=== PATIENT | female | born 1990 | race Caucasian/White ===

== ENCOUNTER → 2019-12-26 | Outpatient (CLI) | payer OTHER ==
[2019-12-26 14:04] LABS: BASO % 0.2 % (0.0-1.0); EOS % 0.7 % (0.0-3.0); HEMOGLOBIN 12.5 g/dl (12.0-15.5); LYMPH # 1.4 10^3/uL (1.5-5.0); MEAN CORPUSCULAR HEMOGLOBIN 29.1 pg (27.0-33.0); MEAN CORPUSCULAR HGB CONC 32.9 g/dl (32.0-36.5); MEAN CORPUSCULAR VOLUME 88.4 fl (80.0-96.0); MONO # 0.2 10^3/uL (0.0-0.8); MONO % 5.4 % (0.0-5.0); NEUTROPHILS # 2.8 10^3/uL (1.5-8.5); NEUTROPHILS % 61.5 % (36.0-66.0); PLATELET COUNT, AUTOMATED 164 10^3/uL (150-450); WHITE BLOOD COUNT 4.5 10^3/uL (4.0-10.0)
[2019-12-26 15:09] LABS: HEPATITIS C VIRUS ABY INDEX 0.3 INDEX (<0.8); HIV 1&2 SCREEN CENTAUR NEGATIVE (NEGATIVE)
[2019-12-26 15:12] LABS: CHLAMYDIA DNA AMPLIFICATION NEGATIVE (NEGATIVE); GC DNA AMPLIFICATION NEGATIVE (NEGATIVE)
== END ==
LOC: M PLALAB 10:03
PROVIDERS: ATTEND Advanced Practice Midwife
DX: Z34.81 Encounter for supervision of other normal pregnancy, first trimester (principal); Z36.89 Encounter for other specified antenatal screening

== ENCOUNTER → 2020-01-22 | Outpatient (REF) | payer OTHER | LOC: M SFHCWAGY 13:22 | PROVIDERS: ATTEND Advanced Practice Midwife | DX: Z34.82 Encounter for supervision of other normal pregnancy, second trimester (principal) ==

== ENCOUNTER → 2020-01-22 | Outpatient (CLI) | payer OTHER ==
--- NOTE | 2020-01-31 11:26 | REP ---
OBSTETRIC SONOGRAPHY HISTORY: Supervision of for anatomy. FINDINGS: Scanning through the gravid uterus demonstrates a viable single intrauterine gestation in a cephalic lie. motion was observed and heart rate was recorded at 158 beats per minute. A posterior grade 1 placenta is seen without evidence of placenta previa or abruption. Amniotic fluid is subjectively normal. Closed cervical length is viewed transabdominally and measured at 3.1 cm. No extrauterine abnormality is observed. No anomaly is seen. The following anatomic structures are identified and felt to be unremarkable: cranium and intracranial anatomy, nuchal fold, face and profile, nose and lips, four chamber heart with left and right ventricular outflow tract views, diaphragm, left-sided stomach, kidneys and urinary bladder, spine, upper and lower extremities, three-vessel cord. BIOMETRY CHART: BPD 4.0 cm 18 weeks 0 days Head circumference 14.7 cm 17 weeks 6 days Abdominal circumference 11.9 cm 17 weeks 4 days Femur length 2.5 cm 17 weeks 3 days Humeral length 2.4 cm 17 weeks 3 days AC/HC ratio 1.23 Normal Cephalic index 0.75 Normal Estimated weight 201 grams, 0 pounds 7 ounces, less than 3rd percentile for 18 weeks 3 days. IMPRESSION: Viable single intrauterine gestation at 17 weeks 5 days by todays composite sonographic criteria. Estimated date of delivery (SHEY) by todays sonography 06/26/2020. MTDD
== END ==
LOC: EDUNIT# 08:00 → M WHC 08:09
PROVIDERS: ATTEND Advanced Practice Midwife
DX: Z34.82 Encounter for supervision of other normal pregnancy, second trimester (principal); Z3A.17 17 weeks gestation of pregnancy

== ENCOUNTER → 2020-03-07 | Outpatient (CLI) | payer OTHER ==
--- NOTE | 2020-03-07 13:39 | REP ---
INDICATION: GROWTH/ANATOMY SHOWED <3% GROWTH. COMPARISON: Comparison study 01/22/2020.. TECHNIQUE: Transabdominal obstetric sonography. FINDINGS: Scanning through the gravid uterus demonstrates a viable single intrauterine gestation in breech lie. motion is observed and heart rate is recorded at 155 beats per minute. A posterior placenta is seen, grade 1, without evidence of placenta previa. Amniotic fluid is subjectively normal. Closed cervical length is measured at 4.1 cm transabdominally. No extrauterine abnormality is observed. . Biometry chart: BPD 5.7 cm, 23 weeks 4 days Head circumference 22.0 cm, 24 weeks 0 days Abdominal circumference 19.9 cm, 24 weeks 4 days Femur length 4.1 cm, 23 weeks 1 day Humeral length 3.8 cm, 23 weeks 1 day HC AC ratio normal 1.10 Cephalic index normal 0.71 Estimated weight 642 g, 1 lb 6 oz, 10th percentile for 24 weeks 6 days IMPRESSION: Viable single intrauterine gestation at 23 weeks 5 days by today's composite sonographic criteria. SHEY by today's sonography June 29, 2020. No complication identified. Expected gestational age estimate based on prior sonography is 24 weeks 6 days. SHEY by prior sonography 21 June 2020. <Electronically signed by Hernandez Magallon > 03/07/20 [id number]
== END ==
LOC: M WHC 08:58
PROVIDERS: ATTEND Advanced Practice Midwife
DX: O99.342 Other mental disorders complicating pregnancy, second trimester (principal); Z3A.23 23 weeks gestation of pregnancy

== ENCOUNTER → 2020-03-20 | Outpatient (REF) | payer OTHER ==
[2020-03-20 11:48] LABS: HEMATOCRIT 34.5 % (36.0-47.0); HEMOGLOBIN 11.3 g/dl (12.0-15.5); MEAN CORPUSCULAR HEMOGLOBIN 30.1 pg (27.0-33.0); MEAN CORPUSCULAR HGB CONC 32.8 g/dl (32.0-36.5); PLATELET COUNT, AUTOMATED 171 10^3/uL (150-450); RED BLOOD COUNT 3.75 10^6/uL (4.00-5.40); WHITE BLOOD COUNT 5.7 10^3/uL (4.0-10.0)
== END ==
LOC: M PLALAB 08:35
PROVIDERS: ATTEND Advanced Practice Midwife
DX: O99.342 Other mental disorders complicating pregnancy, second trimester (principal); Z3A.00 Weeks of gestation of pregnancy not specified
CPT/HCPCS: 36415; 82950; 85027; 86850; 86900; 86901; 90471; 90686; G0463

== ENCOUNTER → 2020-03-25 | Outpatient (CLI) | payer OTHER ==
--- NOTE | 2020-03-25 10:08 | REP ---
INDICATION: GROWTH COMPARISON: 03/07/2020 TECHNIQUE: Transabdominal obstetrical ultrasound with color Doppler evaluation. FINDINGS: Examination demonstrates a single live intrauterine in breech presentation. motion is identified by technologist. Placenta is noted posterior and grade 1 without evidence for placenta previa or abruption. Amniotic fluid volume is normal. Cervix measures 3.5 cm in length and appears closed.. Gestational age by LMP 27 weeks 3 days with SHEY 06/21/2020. Gestational age by current measurements 26 weeks 4 days with SHEY 06/27/2020. FHR equals 172 beats per minute. BPD: 6.8 cm 27 weeks 2 days HC: 25.1 cm 27 weeks 2 days AC: 23.0 cm 27 weeks 2 days FL: 4.7 cm 25 weeks 4 days HL: 4.3 cm 25 weeks 5 days HC/AC: 1.09 Estimated weight 969 grams (15thpercentile). ALMITA: 14.8 cm (9.5-22.7) IMPRESSION: Single live gestation in breech presentation demonstrating appropriate estimated weight and amniotic fluid volume. <Electronically signed by Lalo Penaloza > 03/25/20 1003
== END ==
LOC: M WHC 08:57
PROVIDERS: ATTEND Advanced Practice Midwife
DX: O26.842 Uterine size-date discrepancy, second trimester (principal); Z3A.27 27 weeks gestation of pregnancy; O32.1XX0 Maternal care for breech presentation, not applicable or unspecified

== ENCOUNTER → 2020-05-16 | Outpatient (CLI) | payer OTHER ==
--- NOTE | 2020-05-18 08:43 | REP ---
INDICATION: GROWTH PROBLEM SUSPECTED,GROWTH COMPARISON: 03/25/2020 TECHNIQUE: Transabdominal obstetrical ultrasound with color Doppler evaluation. FINDINGS: Examination demonstrates a single live intrauterine in cephalic presentation. motion is identified by technologist. Placenta is noted posterior and grade 2 without evidence for placenta previa or abruption. Amniotic fluid volume is normal. Cervix measures 3.0 cm in length and appears closed.. Gestational age by LMP 34 weeks 6 days with SHEY 06/21/2020. Gestational age by current measurements 32 weeks 4 days with SHEY 07/07/2020. FHR equals 160 beats per minute. BPD: 8.1 cm 32 weeks 3 days HC: 29.7 cm 32 weeks 6 days AC: 30.4 cm 34 weeks 3 days FL: 6.2 cm 32 weeks 2 days HL: 5.3 cm 30 weeks 5 days HC/AC: 0.98 Estimated weight 2193 grams (13thpercentile). IMPRESSION: Single live advanced gestation in cephalic presentation demonstrating relatively appropriate interval growth. <Electronically signed by Lalo Penaloza > 05/18/20 [id number]
== END ==
LOC: M WHC 09:53
PROVIDERS: ATTEND Specialist
DX: Z03.74 Encounter for suspected problem with fetal growth ruled out (principal); Z3A.34 34 weeks gestation of pregnancy
CPT/HCPCS: 76815; 90471; 90715; G0463

== ENCOUNTER → 2020-05-30 | Outpatient (REF) | payer OTHER | LOC: M PLALAB 10:01 | PROVIDERS: ATTEND Obstetrics & Gynecology | DX: Z3A.36 36 weeks gestation of pregnancy (principal) ==

== ENCOUNTER 2020-06-16 06:53 | Inpatient (IN) | payer OTHER ==
[2020-06-16] VITALS (21 sets, daily range): BP systolic 92–142; BP diastolic 56–76
[~2020-06-16] VITALS: Ht 157.5 cm; Wt 63.9 kg
[2020-06-16] MEDS ORDERED: ZOLOFT PO (07:20)
[2020-06-16] MEDS ORDERED: PRENTAB9 PO (07:20)
[2020-06-16] MEDS ORDERED: VALT500T PO (07:20)
[2020-06-16 08:59] LABS: HEMATOCRIT 31.6 % (36.0-47.0); MEAN CORPUSCULAR HEMOGLOBIN 27.2 pg (27.0-33.0); MEAN CORPUSCULAR HGB CONC 31.6 g/dl (32.0-36.5); MEAN CORPUSCULAR VOLUME 86.1 fl (80.0-96.0); PLATELET COUNT, AUTOMATED 149 10^3/uL (150-450); RED BLOOD COUNT 3.67 10^6/uL (4.00-5.40); WHITE BLOOD COUNT 5.8 10^3/uL (4.0-10.0)
[2020-06-16] MEDS: SERTRALINE HCL 50 MG TAB PO SCH (09:00)
[2020-06-16] MEDS ORDERED: miSOPROStol 50MCG 1/2 TABLET PO SCH (09:30)
--- NOTE | 2020-06-16 10:10 | HPE ---
HISTORY AND PHYSICAL DATE OF ADMISSION: 06/16/2020 HISTORY OF PRESENT ILLNESS: Hollie is a 30-year-old 3, para 2, 0, 0, 2. she is 39+ weeks gestation with an EDC of 06/21/20 based on first trimester ultrasound. She presented to labor and delivery for induction of labor due to social reasons. She reports an occasional contraction, denies vaginal bleeding and leakage of fluid. The fetus has been active. Her care was initiated at [facility] in the first trimester. course complicated by anxiety and depression; Zoloft 50 mg. HSV; she has been on prophylactic medications since 36 weeks. Initially she had a fetus that was noted to have IUGR at less than the 3rd percentile on the anatomy scan. On her most recent ultrasound on 05/16/20 the fetus was at the 13th percentile for growth with normal fluid in cephalic presentation. OBSTETRIC HISTORY: 1. July,, 40 weeks and 6 days, 6 pound 12 ounce female, vaginal delivery, spontaneous delivery, vaginal spontaneous labor. 2. January,, 39 weeks, 7 pound female, vaginal delivery following induction of labor for social reasons. OBSTETRIC LABORATORY DATA: O positive. Antibody screen negative. Gonorrhea and chlamydia negative. Hepatitis B surface antigen negative. Hepatitis C antibody non-reactive. HIV negative. Rubella immune. Urine culture and sensitivity no growth. Gestational diabetic screening normal at 110 and her GBS is negative. PAST MEDICAL HISTORY: 1. Anxiety/depression. 2. Childhood varicella. PAST SURGICAL HISTORY: 1. Knee surgery. 2. D&C following a retained placenta in her first delivery. FAMILY HISTORY: Breast cancer, diabetes and heart disease. SOCIAL HISTORY: She is . Her is at bedside. She is a nonsmoker. She denies alcohol and drug use. She has a history of HSV. She denies history of abuse physical, sexual and emotional. ALLERGIES: No known drug allergies. CURRENT MEDICATIONS: 1. vitamin. 2. Valtrex. PHYSICAL EXAMINATION: Temperature 97.2, pulse 94, respiration 18, BP 98/60. She is alert and oriented times 3, smiling and talkative. heart rate is 130 with moderate variability, positive accelerations, negative decelerations. Contractions appear to be every 4 minutes. They palpate mild. Abdomen: Gravid. Cephalic presentation. Estimated weight 2600 grams. Vaginal exam: 2 cm dilated, 50% effaced, -3 station, posterior, soft, no show with the exam. ASSESSMENT: Intrauterine at 39 plus weeks, heart rate category 1, term . PLAN: Admit patient to labor and delivery. Routine labs. Out of bed ad edwin. Regular diet at this time. Saline lock for I.V. access. I plan to start misoprostol 50 mcg by mouth every 4 hours for cervical ripening. We will likely start I.V. Pitocin. May consider assisted rupture of membranes at some point to augment her labor. She does request an epidural when she is uncomfortable. Plan 1000 mL I.V. bolus 30 minutes prior to her anesthesia consult. I did review risks, benefits and alternatives. She and her partner's all of their questions have been answered. She has been verbally consented for emergency surgery and blood products if they are necessary. I do anticipate cervical ripening, labor and a vaginal delivery.
[2020-06-16] MEDS ORDERED: LR 1,000 ML IV SCH (13:25)
[2020-06-16] MEDS ORDERED: OXYTOCIN DRIP 30 UNITS in IV 1 EA IV SCH ×2 (13:30→15:48)
[2020-06-16] MEDS ORDERED: LACTATED RINGER'S 1000 ML IV ONE (13:30)
[2020-06-16] MEDS ORDERED: FENTANYL 2MCG/ML ROPIVACAINE 0.2% IN 0.9% NACL 100ML IVBAG As Ordered ONE (14:20)
[2020-06-16] MEDS ORDERED: ONDANSETRON 4MG/2ML VIAL IV PRN (14:45)
[2020-06-16] MEDS ORDERED: FENTANYL/ROPIVACAINE/NACL BAG 100 ML EPIDURAL SCH (14:45)
[2020-06-16] MEDS ORDERED: REFRIGERATOR IV KEYS XX PRN (14:45)
[2020-06-16] MEDS ORDERED: NALOXONE INJ 0.4MG/1ML VIAL (J2310 PER 1MG) IV PRN (14:45)
[2020-06-16] MEDS ORDERED: ePHEDrine SULFATE 25 MG/5 ML(5MG/ML) SYRINGE IV PRN (14:45)
[2020-06-16] MEDS ORDERED: LACTATED RINGER'S 1000 ML IV PRN (14:45)
[2020-06-16] MEDS ORDERED: diphenhydrAMINE 50MG/ML VIAL (J1200) IV PRN (14:45)
[2020-06-16] MEDS ORDERED: EPIDURAL COMMENT XX SCH (14:45)
[2020-06-16] MEDS ORDERED: EPIDURAL/PCA KEYS XX PRN (14:45)
[2020-06-16] MEDS ORDERED: ACETAMINOPHEN TAB 650MG DOSE (2X325MG) PO PRN (16:00)
[2020-06-16] MEDS ORDERED: MEASLES,MUMPS,RUBELLA VACCINE INJ (MMR-II) (90707) SC SCH (16:00)
[2020-06-16] MEDS ORDERED: IBUPROFEN 600MG TAB PO PRN (16:00)
[2020-06-16] MEDS ORDERED: DOCUSATE SODIUM 100MG CAPSULE PO PRN (16:00)
[2020-06-16] MEDS ORDERED: METHYLERGONOVINE MALEATE 0.2 MG TAB PO PRN (16:00)
[2020-06-16] MEDS ORDERED: BENZOCAINE 20% HEMORRHOIDAL OINTMENT 28GM TUBE TOP PRN (16:00)
[2020-06-16] MEDS ORDERED: RHOGAM 300 MCG (1500 IU) INJ (J2790) IM SCH (16:00)
--- NOTE | 2020-06-16 16:10 | DN ---
DELIVERY NOTE DATE OF DELIVERY: 06/16/2020 TIME OF : 1528 GENDER: Male. APGARS: 9 and 9. LACERATIONS: Two small vaginal abrasions. ANESTHESIA: Epidural. ESTIMATED BLOOD LOSS: 300 mL. COUNTS: Correct and verified. DESCRIPTION OF DELIVERY: Hollie is a 30-year-old 3, para 3-0-0-3 now who was admitted to labor and delivery for social induction of labor. One dose of misoprostol and IV Pitocin were used and labor ensued. She coped with her labor with an epidural. She had spontaneous rupture of membranes for a moderate amount of clear fluid at 1424. She reached complete dilation at 1521. She pushed to a normal spontaneous vaginal delivery of a live male infant in left occiput anterior (JANELL) position with restitution to left occiput transverse (LOT) position at 1528. There was a nuchal cord x1 loose that was reduced manually at the time of delivery. The shoulders delivered spontaneously and the corpus immediately followed. The was placed on the maternal abdomen crying and active. His mouth and nares were bulb suctioned. The cord was clamped x2 once pulsations ceased and cut by the father of the baby under my direction. Cord blood was obtained. Spontaneous expulsion of an intact placenta with three-vessel cord by Brock mechanism was at 1532. Uterine hemostasis was achieved with IV Pitocin rapid infusion and uterine fundal massage. Estimated blood loss 300 mL. Perineum and vagina were inspected noted to have two small vaginal abrasions. They were repaired with 3-0 Vicryl Rapide and interrupted sutures. The male weighed 3070 grams (6 pounds 12 ounces). Apgars were 9 and 9. Mom is going to breastfeed her son, and they have named him George. At the close of delivery lap counts, needle counts, and instrument counts were correct and verified.
[2020-06-16] MEDS: IBUPROFEN 800 MG TAB PO PRN (20:15)
[2020-06-17] MEDS: ACETAMINOPHEN 500 MG TAB PO PRN ×2 (01:50→16:51)
[2020-06-17 06:00] VITALS: BP 105/68
[2020-06-17] MEDS: IBUPROFEN 800 MG TAB PO PRN (06:19)
[2020-06-17] MEDS: SERTRALINE HCL 50 MG TAB PO SCH (08:30)
[2020-06-17] MEDS: PRENATAL VITAMINS CHEWABLE TABLET PO SCH (08:30)
[2020-06-17 17:31] VITALS: BP 116/69
[2020-06-18 06:00] VITALS: BP 110/66
[2020-06-18] MEDS: PRENATAL VITAMINS CHEWABLE TABLET PO SCH (08:25)
[2020-06-18] MEDS: SERTRALINE HCL 50 MG TAB PO SCH (08:25)
[2020-06-18] MEDS ORDERED: IBUP80TA PO (08:40)
[2020-06-18] MEDS ORDERED: DOK1CAP7 PO (08:40)
--- NOTE | 2020-06-18 08:45 | IPNPDOC ---
Progress Note Date of Service: Jun 18, 2020 Day#: 2 Progress Note PPD 2 SUBJECT: Hollie is a 30yo [id number] s/p uncomplicated after social IOL, doing well day # 2. She has been ambulating, voiding spontaneously without issue and tolerating regular diet. Breast feeding without issue. Reports lochia is like a normal period. No f/c/n/v/CP/SOB. OBJECTIVE: VITAL SIGNS: Within normal limits, afebrile. Alert and oriented times three. Abdomen: Fundus firm at U-2. Soft, NTTP. Extremities: no pain with palpation of calves, no edema of BLE ASSESSMENT: Hollie is a 30yo [id number] s/p uncomplicated after social IOL, doing well day # 2. Vitals within normal limits, afebrile, hemodynamically stable with no evidence of infection. PLAN: 1. Discharge to home today. 2. Tylenol and Motrin for pain. Colace for stool softener. 3. Encourage breast feeding and ambulation. 4. Routine PP visit in 6 weeks in clinic. 5. Discussed return precautions at length. 6. No heavy lifting, vaginal rest 6 weeks Cris Andrade MD VS, I&O, 24H, Fishbone Vital Signs/I&O Vital Signs Date Time Temp Pulse Resp B/P (MAP) Pulse Ox O2 Delivery O2 Flow Rate FiO2 06/18/20 06:00 99.0 79 16 110/66 (81) 99 Room Air Cris Andrade MD Jun 18, 2020 08:45
--- NOTE | 2020-06-18 08:47 | DS.PDOC ---
Discharge Summary General Date of Admission Jun 16, 2020 at 06:53 Date of Discharge Jun 18, 2020 Discharge Summary PROCEDURES PERFORMED DURING STAY: spontaneous vaginal delivery ADMITTING DIAGNOSES: 1. term social IOL DISCHARGE DIAGNOSES: 1. term social IOL, delivered COMPLICATIONS/CHIEF COMPLAINT: Induction. HISTORY OF PRESENT ILLNESS/HOSPITAL COURSE: Hollie is a 30yo [id number] s/p uncomplicated after social IOL, doing well day # 2. At time of discharge, vitals are within normal limits, she is afebrile, hemodynamically stable with no evidence of infection. DISCHARGE MEDICATIONS: Please see below. ALLERGIES: Please see below. PHYSICAL EXAMINATION ON DISCHARGE: VITAL SIGNS: Within normal limits, afebrile. Alert and oriented times three. Abdomen: Fundus firm at U-2. Soft, NTTP. Extremities: no pain with palpation of calves, no edema of BLE LABORATORY DATA: Please see below. DIET: regular DISPOSITION: home DISCHARGE PLAN/INSTRUCTIONS: 1. Discharge to home today. 2. Tylenol and Motrin for pain. Colace for stool softener. 3. Encourage breast feeding and ambulation. 4. Routine PP visit in 6 weeks in clinic. 5. Discussed return precautions at length. 6. No heavy lifting, vaginal rest 6 weeks DISCHARGE CONDITION: Stable TIME SPENT ON DISCHARGE: Greater than 20 minutes. Vital Signs/I&Os Vital Signs Date Time Temp Pulse Resp B/P (MAP) Pulse Ox O2 Delivery O2 Flow Rate FiO2 06/18/20 06:00 99.0 79 16 110/66 (81) 99 Room Air Discharge Medications Scheduled No.137/Iron/Folic Acd ( Vitamin Tablet) 1 Each Tablet, 1 TAB PO DAILY, (Reported) Scheduled PRN Docusate Sodium (Dok) 100 Mg Capsule, 100 MG PO BID PRN for CONSTIPATION Ibuprofen (Ibuprofen) 800 Mg Tablet, 800 MG PO Q8HP PRN for PAIN LEVEL 6-10 Miscellaneous Medications [Zoloft ] , 50 MG PO, (Reported) Allergies Coded Allergies: shellfish derived (Verified Allergy, Unknown, DIFFICULTY BREATHING WHEN EATING, 06/16/20) Cris Andrade MD Jun 18, 2020 08:47
== END 2020-06-18 12:15 | disposition home or self-care (01) | DRG 807 ==
LOC: M LDI 06:53 → M OBS 17:28
PROVIDERS: ADMIT Obstetrics & Gynecology; ATTEND Advanced Practice Midwife
PROC: 10E0XZZ Delivery of Products of Conception, External Approach (ICD-10-PCS; principal; 2020-06-16)
PROC: 3E0P7GC Introduction of Other Therapeutic Substance into Female Reproductive, Via Natural or Artificial Opening (ICD-10-PCS; 2020-06-16)
DX: O99.344 Other mental disorders complicating childbirth (principal); Z37.0 Single live birth; F41.9 Anxiety disorder, unspecified; F32.9 Major depressive disorder, single episode, unspecified; Z3A.39 39 weeks gestation of pregnancy; O69.81X0 Labor and delivery complicated by cord around neck, without compression, not applicable or unspecified

== ENCOUNTER → 2020-10-26 | Outpatient (CLI) | payer OTHER ==
[~2020-10-26] MED LIST: DOK1CAP7 PO; IBUP80TA PO; PRENTAB9 PO; VALT500T PO; ZOLOFT PO
[2020-10-26 08:45] LABS: BASO % 0.3 % (0.0-1.0); EOS % 1.2 % (0.0-3.0); HEMATOCRIT 41.1 % (36.0-47.0); HEMOGLOBIN 13.1 g/dl (12.0-15.5); LYMPH # 1.3 10^3/uL (1.5-5.0); LYMPH % 40.9 % (24.0-44.0); MEAN CORPUSCULAR HEMOGLOBIN 27.8 pg (27.0-33.0); MEAN CORPUSCULAR HGB CONC 31.9 g/dl (32.0-36.5); MEAN CORPUSCULAR VOLUME 87.3 fl (80.0-96.0); MONO # 0.3 10^3/uL (0.0-0.8); MONO % 8.7 % (2.0-8.0); NEUTROPHILS # 1.6 10^3/uL (1.5-8.5); NEUTROPHILS % 48.6 % (36.0-66.0); PLATELET COUNT, AUTOMATED 178 10^3/uL (150-450); RED BLOOD COUNT 4.71 10^6/uL (4.00-5.40); WHITE BLOOD COUNT 3.2 10^3/uL (4.0-10.0)
[2020-10-26 09:17] LABS: ALBUMIN 4.1 GM/DL (3.2-5.2); ALT/SGPT 24 U/L (12-78); BILIRUBIN,TOTAL 0.9 MG/DL (0.2-1.0); BLOOD UREA NITROGEN 9 MG/DL (7-18); CALCIUM LEVEL 9.2 MG/DL (8.5-10.1); CARBON DIOXIDE LEVEL 27 MEQ/L (21-32); CHLORIDE LEVEL 108 MEQ/L (98-107); CREATININE FOR GFR 0.62 MG/DL (0.55-1.30); FREE T4 0.84 NG/DL (0.76-1.46); GLOMERULAR FILTRATION RATE > 60.0 (>60); GLUCOSE, FASTING 77 MG/DL (70-100); SODIUM LEVEL 138 MEQ/L (136-145); TOTAL PROTEIN 7.3 GM/DL (6.4-8.2)
== END ==
LOC: M LAB 08:04
PROVIDERS: ATTEND Physician Assistant
DX: K58.1 Irritable bowel syndrome with constipation (principal)

== ENCOUNTER → 2021-12-29 | Outpatient (CLI) | payer OTHER ==
[~2021-12-29] MED LIST changes: +DOK1CAP4 PO; -DOK1CAP7 PO
== END ==
LOC: M SOG 10:46
PROVIDERS: ATTEND Orthopaedic Surgery Adult Reconstructive Orthopaedic Surgery
DX: M25.561 Pain in right knee (principal)

== ENCOUNTER → 2022-01-16 | Outpatient (CLI) | payer OTHER | LOC: M RAD 08:31 | PROVIDERS: ATTEND Orthopaedic Surgery Adult Reconstructive Orthopaedic Surgery | DX: M23.91 Unspecified internal derangement of right knee (principal) ==

== ENCOUNTER → 2023-04-04 | Outpatient (REF) | payer OTHER | LOC: M PLALAB 10:18 | PROVIDERS: ATTEND Advanced Practice Midwife | DX: Z34.91 Encounter for supervision of normal pregnancy, unspecified, first trimester (principal) ==

== ENCOUNTER → 2023-04-07 | Outpatient (CLI) | payer OTHER ==
[2023-04-07 14:38] LABS: HEMATOCRIT 37.3 % (36.0-47.0); HEMOGLOBIN 12.6 g/dl (12.0-15.5); MEAN CORPUSCULAR HEMOGLOBIN 29.4 pg (27.0-33.0); MEAN CORPUSCULAR HGB CONC 33.8 g/dl (32.0-36.5); MEAN CORPUSCULAR VOLUME 87.1 fl (80.0-96.0); PLATELET COUNT, AUTOMATED 219 10^3/uL (150-450); RED BLOOD COUNT 4.28 10^6/uL (4.00-5.40); WHITE BLOOD COUNT 6.3 10^3/uL (4.0-10.0)
[2023-04-07 15:10] LABS: HIV 1&2 SCREEN NEGATIVE (NEGATIVE)
[2023-04-07 16:08] LABS: CHLAMYDIA DNA AMPLIFICATION NEGATIVE (NEGATIVE); GC DNA AMPLIFICATION NEGATIVE (NEGATIVE)
== END ==
LOC: M PLALAB 10:18
PROVIDERS: ATTEND Advanced Practice Midwife
DX: Z34.91 Encounter for supervision of normal pregnancy, unspecified, first trimester (principal)

== ENCOUNTER → 2023-06-02 | Outpatient (CLI) | payer OTHER | LOC: M WHC 09:40 | PROVIDERS: ATTEND Obstetrics & Gynecology | DX: Z34.92 Encounter for supervision of normal pregnancy, unspecified, second trimester (principal) ==

== ENCOUNTER → 2023-07-26 | Outpatient (CLI) | payer OTHER ==
[2023-07-26 14:20] LABS: HEMATOCRIT 30.2 % (36.0-47.0); MEAN CORPUSCULAR HEMOGLOBIN 28.9 pg (27.0-33.0); MEAN CORPUSCULAR HGB CONC 33.1 g/dl (32.0-36.5); MEAN CORPUSCULAR VOLUME 87.3 fl (80.0-96.0); PLATELET COUNT, AUTOMATED 177 10^3/uL (150-450); RED BLOOD COUNT 3.46 10^6/uL (4.00-5.40); WHITE BLOOD COUNT 6.9 10^3/uL (4.0-10.0)
[2023-07-26 15:49] LABS: GC DNA AMPLIFICATION NEGATIVE (NEGATIVE)
== END ==
LOC: M PLALAB 09:31
PROVIDERS: ATTEND Obstetrics & Gynecology
DX: Z34.92 Encounter for supervision of normal pregnancy, unspecified, second trimester (principal)

== ENCOUNTER → 2023-08-12 | Outpatient (CLI) | payer OTHER | LOC: M LAB 07:57 | PROVIDERS: ATTEND Obstetrics & Gynecology | DX: R73.09 Other abnormal glucose (principal) ==

== ENCOUNTER → 2023-09-14 | Outpatient (CLI) | payer OTHER ==
[2023-09-14 14:14] LABS: HEMATOCRIT 31.2 % (36.0-47.0); HEMOGLOBIN 9.9 g/dl (12.0-15.5); MEAN CORPUSCULAR HGB CONC 31.7 g/dl (32.0-36.5); PLATELET COUNT, AUTOMATED 156 10^3/uL (150-450); RED BLOOD COUNT 3.67 10^6/uL (4.00-5.40)
== END ==
LOC: M PLALAB 09:26
PROVIDERS: ATTEND Advanced Practice Midwife
DX: O99.013 Anemia complicating pregnancy, third trimester (principal)

== ENCOUNTER → 2023-09-28 | Outpatient (REF) | payer OTHER | LOC: M PLALAB 10:00 | PROVIDERS: ATTEND Advanced Practice Midwife | DX: O99.343 Other mental disorders complicating pregnancy, third trimester (principal); Z36.85 Encounter for antenatal screening for Streptococcus B ==

== ENCOUNTER 2023-10-03 15:25 | Outpatient (CLI) | payer OTHER ==
[~2023-10-03] VITALS: Ht 157.5 cm; Wt 61.0 kg
[2023-10-03 15:25] VITALS: BP 112/57; O2SAT 100
[~2023-10-03 15:25] MED LIST changes: +ALBUTEROL SULFATE 2.5MG/0.5ML INH NEB SOLN INH PRN; +EPINEPHrine INJ 1 MG/ML 1ML AMP IM PRN; +diphenhydrAMINE 50MG/ML VIAL IV PRN; +methylPREDNISolone 125MG 2ML VIAL IV PRN
[2023-10-03] MEDS ORDERED: NS 1,000 ML IV SCH (15:30)
[2023-10-03] MEDS: FERRIC CARBOXYMALTOSE INJ 750 MG in NS 250 ML (>50kg) IV ONE (15:33)
[2023-10-03 16:40] VITALS: BP 114/63; O2SAT 99
== END 2023-10-03 16:40 ==
LOC: M INFU 15:25
PROVIDERS: ATTEND Advanced Practice Midwife
DX: D64.9 Anemia, unspecified (principal); Z91.013 Allergy to seafood
CPT/HCPCS: 96365; J1439

== ENCOUNTER 2023-10-14 08:16 | Outpatient (RCR) | payer OTHER ==
[~2023-10-14 08:16] MED LIST changes: -ALBUTEROL SULFATE 2.5MG/0.5ML INH NEB SOLN INH PRN; -EPINEPHrine INJ 1 MG/ML 1ML AMP IM PRN; -diphenhydrAMINE 50MG/ML VIAL IV PRN; -methylPREDNISolone 125MG 2ML VIAL IV PRN
[2023-10-21] MEDS ORDERED: VALA500T5 PO (15:12)
== END 2023-10-30 ==
LOC: M PT 08:16
PROVIDERS: ATTEND Advanced Practice Midwife
DX: N81.89 Other female genital prolapse (principal)

== ENCOUNTER 2023-10-21 11:44 | Inpatient (IN) | payer OTHER ==
[2023-10-21] VITALS (11 sets, daily range): BP systolic 101–127; BP diastolic 66–73
[~2023-10-21] VITALS: Ht 157.5 cm; Wt 61.2 kg
[2023-10-21] MEDS ORDERED: LIDOCAINE 1% MDV 20ML VIAL INFIL PRN (12:20)
[2023-10-21] MEDS ORDERED: CARBOPROST TROMETHAMINE 250 MCG/ML AMP IM PRN (12:20)
[2023-10-21] MEDS ORDERED: TRANEXAMIC ACID INJection 1,000 MG in NS 100 ML IV PRN (12:20)
[2023-10-21] MEDS ORDERED: OXYTOCIN DRIP 30 UNITS in IV 1 EA IV PRN (12:20)
[2023-10-21] MEDS ORDERED: METHYLERGONOVINE MALEATE 0.2MG/ML 1ML VIAL IM PRN (12:20)
[2023-10-21 13:10] LABS: HEMATOCRIT 36.4 % (36.0-47.0); HEMOGLOBIN 12.1 g/dl (12.0-15.5); MEAN CORPUSCULAR HGB CONC 33.2 g/dl (32.0-36.5); MEAN CORPUSCULAR VOLUME 87.3 fl (80.0-96.0); PLATELET COUNT, AUTOMATED 145 10^3/uL (150-450); RED BLOOD COUNT 4.17 10^6/uL (4.00-5.40); WHITE BLOOD COUNT 5.7 10^3/uL (4.0-10.0)
[2023-10-21] MEDS: miSOPROStol 50MCG 1/2 TABLET PO ONE (13:13)
[2023-10-21 14:21] LABS: HEPATITIS C VIRUS ABY INDEX 0.02 INDEX (<0.8)
[2023-10-21] MEDS ORDERED: VALA500T5 PO (15:12)
[2023-10-21] MEDS ORDERED: HOME MED LIST COMPLETE! XX SCH (15:15)
[2023-10-21] MEDS: LR 1,000 ML IV SCH (19:01)
[2023-10-21] MEDS: LACTATED RINGER'S 1000 ML IV STA (19:01)
[2023-10-21] MEDS: OXYTOCIN DRIP 30 UNITS in IV 1 EA IV SCH (19:02)
[2023-10-21] MEDS ORDERED: LR 500 ML IV PRN (19:30)
[2023-10-21] MEDS ORDERED: diphenhydrAMINE 50MG/ML VIAL IV PRN (19:30)
[2023-10-21] MEDS ORDERED: EPIDURAL/PCA KEYS XX PRN (19:30)
[2023-10-21] MEDS ORDERED: NALOXONE INJ 0.4MG/1ML VIAL IV PRN (19:30)
[2023-10-21] MEDS ORDERED: ONDANSETRON 4MG 2ML VIAL IV PRN (19:30)
[2023-10-21] MEDS ORDERED: ePHEDrine SULFATE 25 MG/5 ML(5MG/ML) SYRINGE IVP PRN (19:30)
[2023-10-21] MEDS: FENTANYL/ROPIVACAINE/NACL BAG 100 ML EPIDURAL SCH (20:09)
[2023-10-22] MEDS ORDERED: METHYLERGONOVINE MALEATE 0.2 MG TAB PO PRN (00:55)
[2023-10-22] MEDS ORDERED: RHO(D) IMMUNE GLOBULIN/MALTOSE 500MCG(2500IU)/2.2ML VIAL (WINRHO) IM SCH (00:55)
[2023-10-22] MEDS ORDERED: ACETAMINOPHEN TAB 650MG DOSE (2X325MG) PO PRN (00:55)
[2023-10-22] MEDS ORDERED: IBUPROFEN 600MG TAB PO PRN (00:55)
[2023-10-22 02:34] VITALS: BP 111/66; O2SAT 99
[2023-10-22] MEDS: IBUPROFEN 800 MG TAB PO PRN (05:46)
[2023-10-22 06:00] VITALS: BP 99/61; O2SAT 98
[2023-10-22] MEDS: DIBUCAINE 1% OINTMENT 30GM TOP PRN (08:36)
[2023-10-22] MEDS: PRENATAL VITAMINS CHEWABLE TABLET PO SCH (08:36)
[2023-10-22] MEDS: ANUSOL HC CREAM 30GM TOP PRN (08:36)
[2023-10-22] MEDS: ACETAMINOPHEN 500 MG TAB PO PRN (10:06)
[2023-10-22 17:43] VITALS: BP 104/63; O2SAT 96
[2023-10-22] MEDS: SERTRALINE HCL 50 MG TAB PO SCH (20:19)
[2023-10-22] MEDS: DOCUSATE SODIUM 100MG CAPSULE PO PRN (20:21)
[2023-10-23 05:43] VITALS: BP 105/62; O2SAT 98
[2023-10-24] MEDS ORDERED: MEASLES,MUMPS,RUBELLA VACCINE INJ (MMR-II) SC.IMMUN ONE (09:00)
== END 2023-10-23 12:10 | disposition home or self-care (01) | DRG 807 ==
LOC: M LDI 11:44 → M OBS 10-22 02:28
PROVIDERS: ADMIT Advanced Practice Midwife; ATTEND Advanced Practice Midwife
PROC: 3E0P7GC Introduction of Other Therapeutic Substance into Female Reproductive, Via Natural or Artificial Opening (ICD-10-PCS; 2023-10-21)
PROC: 10E0XZZ Delivery of Products of Conception, External Approach (ICD-10-PCS; principal; 2023-10-22)
DX: O98.32 Other infections with a predominantly sexual mode of transmission complicating childbirth (principal); Z37.0 Single live birth; Z3A.39 39 weeks gestation of pregnancy; A60.09 Herpesviral infection of other urogenital tract

== ENCOUNTER → 2024-09-07 | Outpatient (REF) | payer OTHER ==
[~2024-09-07] MED LIST changes: +DOCU100C16 PO; +FLUTISP; +SERT25TA21 PO; +VALA500T5 PO
== END ==
LOC: M LAB REF 12:34
PROVIDERS: ATTEND Physician Assistant
DX: J06.9 Acute upper respiratory infection, unspecified (principal)

== ENCOUNTER → 2024-11-22 | Outpatient (REF) | payer OTHER | LOC: M LAB REF 11:55 | PROVIDERS: ATTEND Student in an Organized Health Care Education/Training Program | DX: R30.0 Dysuria (principal) ==

== ENCOUNTER → 2024-12-05 | Outpatient (REF) | payer OTHER ==
[2024-12-07 14:53] LABS: HPV APTIMA Not Detected (Not Detected)
== END ==
LOC: M PLALAB 09:06
PROVIDERS: ATTEND Obstetrics & Gynecology
DX: Z01.419 Encounter for gynecological examination (general) (routine) without abnormal findings (principal)
CPT/HCPCS: 87624; G0123

== ENCOUNTER → 2024-12-25 | Outpatient (CLI) | payer OTHER ==
[2024-12-25 13:01] LABS: BASO # 0.0 10^3/uL (0.0-0.2); BASO % 0.7 % (0.0-1.0); EOS # 0.0 10^3/uL (0.0-0.5); EOS % 0.7 % (0.0-3.0); LYMPH # 1.9 10^3/uL (1.5-5.0); LYMPH % 41.6 % (24.0-44.0); MONO # 0.3 10^3/uL (0.0-0.8); MONO % 5.8 % (2.0-8.0); NEUTROPHILS # 2.3 10^3/uL (1.5-8.5); NEUTROPHILS % 51.2 % (36.0-66.0); PLATELET COUNT, AUTOMATED 189 10^3/uL (150-450)
[2024-12-25 13:08] LABS: ESTIMATED AVERAGE GLUCOSE 91.0 MG/DL (60-110)
[2024-12-25 13:25] LABS: ALT/SGPT 12 U/L (7.0-40); AST/SGOT 13 U/L (<34); CALCIUM LEVEL 9.6 MG/DL (8.5-10.1); CARBON DIOXIDE LEVEL 29 MMOL/L (20-31); CHLORIDE LEVEL 102 MMOL/L (98-107); CHOLESTEROL LEVEL 181 MG/DL (<200); CHOLESTEROL RISK RATIO 2.16 (<5); CREATININE FOR GFR 0.62 MG/DL (0.55-1.30); GLOMERULAR FILTRATION RATE > 90.0 (>60); LDL CHOLESTEROL 79.2 MG/DL (<100); NON-HDL-C 97.4 MG/DL; POTASSIUM SERUM 4.1 MMOL/L (3.5-5.1); SODIUM LEVEL 140 MMOL/L (136-145); TRIGLYCERIDES LEVEL 91 MG/DL (<150)
[2024-12-25 13:27] LABS: FREE T4 1.29 NG/DL (0.89-1.76)
[2024-12-30 16:58] LABS: IMMUNOGLOBULIN A CELIAC 211 mg/dL (47-310); t-TRANSGLUTAMINASE(tTG) IgA < 1.0 U/mL (<15.0); t-TRANSGLUTAMINASE(tTG) IgG < 1.0 U/mL (<15.0)
== END ==
LOC: M WUC 08:05
PROVIDERS: ATTEND Physician Assistant
DX: Z13.29 Encounter for screening for other suspected endocrine disorder (principal); Z13.220 Encounter for screening for lipoid disorders; Z84.81 Family history of carrier of genetic disease